=== PATIENT | male | born 1960 | race Caucasian/White ===

== ENCOUNTER 2017-03-14 05:35 | Day surgery (SDC) | payer BC ==
[~2017-03-14] VITALS: Ht 182.9 cm; Wt 86.1 kg
--- NOTE | ~2017-03-14 | OR ---
PATIENT'S NAME: RANI TEE [facility] AGE: 57 Y [address] ROOM: [place] [address] [place] [facility] [place] DATE: 03/14/2017 OR/Procedure Report DISCHARGE DATE: FAMILY PHYSICIAN: Turner De Jesus DO ATTENDING PHYSICIAN: OMERO PETERSEN SURGEON: Omero Petersen MD HEALTHCARE LIAISON: Joe Dahl M.D. DATE OF PROCEDURE: 03/14/2017 PREOPERATIVE DIAGNOSIS: Substernal goiter. POSTOPERATIVE DIAGNOSIS: Substernal goiter. PROCEDURES: 1. Total thyroidectomy. 2. EMG monitoring of the recurrent laryngeal nerves, 2 hours. ANESTHESIA: General endotracheal. COMPLICATIONS: None. ESTIMATED BLOOD LOSS: 75 mL. SPECIMENS: Total thyroid. FINDINGS: 1. Recurrent laryngeal nerve stimulated intact at the conclusion of the case. 2. Parathyroid glands on the right were positively identified and left in situ. 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 The patient was being evaluated for an anterior cervical fusion when the goiter was identified. The patient states that he has noticed enlargement over the years, but has not had any issues. He was found to be euthyroid. We discussed removal of the left side of the thyroid for access with the neurosurgeons and so doing also removal of the right to preclude future monitoring needs of the gland itself. The patient was in agreement and provided informed consent. DESCRIPTION OF PROCEDURE: The patient was brought from the preoperative area to the operative suite, placed on table supine position. All pressure points were padded. Time-out was performed. Correctly identifying the patient procedure. General endotracheal anesthesia was initiated. The anion monitoring system was attached and calibrated. The shoulder roll was placed PATIENT'S NAME: RANI TEE [facility] AGE: 57 Y [address] ROOM: [place] [address] [place]: [facility] [place] DATE: 03/14/2017 OR/Procedure Report DISCHARGE DATE: FAMILY PHYSICIAN: Turner De Jesus DO ATTENDING PHYSICIAN: OMERO PETERSEN and the neck marked and injected with 1% lidocaine with epinephrine. He was then prepped and draped in usual sterile fashion. Incision was made with a 15 blade and cautery was taken down to the level of the strap muscles. Subplatysmal flaps were elevated. Sutures were placed through the platysma for retraction. The straps were divided in the midline and in the left thyroid lobe, first evaluated. A combination of Harmonic Scalpel and blunt dissection was used to completely free the straps and fascia off the left lobes. Superior pole was taken down in a serial fashion with suture ligation and Harmonic Scalpel use. This was also performed of the inferior thyroid vessels. The gland was carefully elevated out of the wound and then dissection was performed in the tracheoesophageal groove until the recurrent laryngeal nerve identified. There was a large portion of the gland that was wrapped behind the trachea near the nerve and this was freed completely and removed. The parathyroids were not identified on this side, however, there also not identified within the subcapsular fascia surrounding the thyroid lobe itself. This was taken off the thyroid gland and then removed. Irrigation was performed and spot hemostasis was achieved with bipolar and the nerve once again stimulated intact. We turned our attention to the right thyroid lobe, which was dissected in the same fashion. This was a much smaller lobe. The recurrent laryngeal nerve was identified as well as the superior and inferior parathyroid glands. These were left in situ. The gland was elevated out of the wound and removed. Hemostasis achieved once again irrigation was performed, recurrent laryngeal nerve once again stimulated intact. The strap muscles were then closed the midline with Vicryl sutures as well as platysma with Vicryl sutures and a running horizontal Prolene suture was placed through the skin followed by ointment and a small dressing. JESSA drain had previously been placed coming up to the right neck and was attached to bulb suction. The patient was returned to the care of anesthesia for extubation and transferred to recovery room in stable condition. MD NORIS FRY/derrick /[id number] d: 03/14/17 1450 t: 03/15/17 1059, OPERATIVE SUMMARY
[~2017-03-14 05:35] MED LIST: ASPIRIN EC81 MG PO; NEURONTIN300 MG PO; PRINIVIL (ZESTR20 MG PO; SIMVASTATIN20 MG PO; TOPROL XL25 MG PO
[2017-03-14] MEDS ORDERED: MOTRIN600 MG PO (06:30)
[2017-03-15] MEDS ORDERED: NORCO 5-325 TA1 EACH PO (11:13)
[2017-03-15] MEDS ORDERED: BACITRACIN OPH3.5 GM TOP (11:18)
[2017-05-10] MEDS ORDERED: LEVOTHROID (S137 MCG PO (13:45)
== END 2017-03-15 13:25 | disposition disaster alternative care site (69) ==
LOC: GMSU 05:35 → GSDC 05:35 → GMSU 05:36 → GSDC 14:00
PROC: 0GTK0ZZ Resection of Thyroid Gland, Open Approach (ICD-10-PCS; principal; 2017-03-14)
DX: E04.9 Nontoxic goiter, unspecified (principal); I25.810 Atherosclerosis of coronary artery bypass graft(s) without angina pectoris; I10 Essential (primary) hypertension; I25.2 Old myocardial infarction; J20.9 Acute bronchitis, unspecified; E78.5 Hyperlipidemia, unspecified; F17.200 Nicotine dependence, unspecified, uncomplicated
CPT/HCPCS: J0131; J0690; J3010; J7030; J7120

== ENCOUNTER 2017-05-15 05:55 | Day surgery (SDC) | payer BC ==
[~2017-05-15] VITALS: Ht 182.9 cm; Wt 87.7 kg
--- NOTE | ~2017-05-15 | OR ---
PATIENT'S [facility] AGE: 57 Y [address] ROOM: [place] [address] LOCATION: [facility] ADMIT DATE: 05/15/2017 OR/Procedure Report DISCHARGE DATE: FAMILY PHYSICIAN: Turner De Jesus DO ATTENDING PHYSICIAN: ISA HERNANDEZ SURGEON: Isa Hernandez MD AGING BOX HAND: DATE OF PROCEDURE: 05/15/2017 ANESTHESIOLOGIST: Isai Lemons MD ANESTHESIA: General. COMPLICATIONS: None. ESTIMATED BLOOD LOSS: Minimal. PREOPERATIVE DIAGNOSES: 1. C4-C5, pczjeczq-ng-ioaryu spinal stenosis with myelopathy. 2. C5-C6, severe spinal stenosis with myelopathy. 3. C6-C7, severe spinal stenosis with myelopathy and radiculopathy. 4. Bilateral C5 foraminal stenosis with radiculopathy. 5. Bilateral C6 foraminal stenosis with radiculopathy. 6. Bilateral C7 foraminal stenosis with radiculopathy. POSTOPERATIVE DIAGNOSES: 1. C4-C5, hbmtzakf-sv-ndeaig spinal stenosis with myelopathy. 2. C5-C6, severe spinal stenosis with myelopathy. 3. C6-C7, severe spinal stenosis with myelopathy and radiculopathy. 4. Bilateral C5 foraminal stenosis with radiculopathy. 5. Bilateral C6 foraminal stenosis with radiculopathy. 6. Bilateral C7 foraminal stenosis with radiculopathy. PROCEDURES PERFORMED: 1. C4-C5 anterior cervical diskectomy and decompression of the spinal cord for stenosis. 2. C5-C6 anterior cervical diskectomy and decompression of the spinal cord for stenosis. 3. C6-C7 anterior cervical diskectomy and decompression of the spinal cord for stenosis. 4. Bilateral C5, bilateral C6, and bilateral C7 foraminotomy and decompression of the neural elements. 5. C4-C5, C5-C6, and C6-C7 anterior instrumented arthrodesis. 6. Insertion of an anterior cervical titanium plate across C4-C5 disk space (plate size was 19 mm, system used was BA Insighttronic [place] Elite system). PATIENT'S [facility]: [facility] AGE: 57 Y [address] ROOM: [place] [address] LOCATION: [facility] ADMIT DATE: 05/15/2017 OR/Procedure Report DISCHARGE DATE: FAMILY PHYSICIAN: Turner De Jesus DO ATTENDING PHYSICIAN: ISA HERNANDEZ 7. Insertion of a second anterior cervical titanium plate spanning from C5 to C7 (plate size was 40 mm, system used was Medtronic [place] Elite system). 8. Intraoperative fluoroscopy and interpretation. 9. Insertion of structural cortical cancellous allograft spacers into C4-C5, C5-C6, and C6-C7 disk spaces (system used was Medtronic Cornerstone system). CLINICAL HISTORY/INDICATIONS FOR PROCEDURE: The patient is a 57-year-old male patient, who was diagnosed with the above-mentioned diagnoses back in January 2017. The patient's imaging also showed evidence of a very large goiter. I sent the patient to ENT for consideration of thyroidectomy prior to the above- mentioned surgery. The patient underwent total thyroidectomy done by Dr. Alas in March 2017. The patient did very well postoperatively. The patient was recently seen in the office and he continued to have symptoms related to multi-level cervical degenerative joint disease, spinal stenosis. He was also found to have weakness in both hands, left worse than the right side. I recommended the above-mentioned surgery to the patient to try to decompress the neural elements to treat his symptoms. The patient was brought in for the elective surgery. DESCRIPTION OF PROCEDURE: The patient was seen in the preoperative care unit and the correct side was marked. Then, he was transferred to the main operating theater, was given general anesthetic, and underwent endotracheal intubation without complications. Preoperative antibiotics and steroids were given. Molina catheter, calf compressors were used throughout the procedure. The patient was positioned supine on the table and all his joints and bony prominences were securely padded. The patient's head was placed on a gel padded beanbag. The neck was held in mild extension/neutral position. The shoulders were taped away to facilitate intraoperative fluoroscopy. Then, I marked an oblique incision just medial to the right sternomastoid muscle on the right side extending from C4-C5 to C6-C7 disk space. The surgical site was then prepped and draped as per usual. The proposed skin incision was infiltrated with 0.25% Marcaine with epinephrine. Skin was sharply opened down to the subplatysmal plane, and as expected, moderate scar tissue was identified. Then, using sharp and blunt dissection, I carefully dissected through the scar tissue from the previous thyroidectomy surgery. That part of the operation was substantially difficult and required more time and caution to prevent nerve and vascular injury. Eventually, I managed to get to the anterior surface of the spine. The correct levels were then confirmed using intraoperative fluoroscopy. I started by elevating the anterior longitudinal ligament as well as the longus colli muscles off the anterior surface of the spine from C4-C5 to C6-C7 PATIENT'S NAME: RANI TEE [facility] AGE: 57 Y [address] ROOM: [address] [address] LOCATION: [facility] ADMIT DATE: 05/15/2017 OR/Procedure Report DISCHARGE DATE: FAMILY PHYSICIAN: Turner De Jesus DO ATTENDING PHYSICIAN: ISA HERNANDEZ levels. As expected, there were moderate anterior projecting osteophytes at all levels and those were removed using Kerrison rongeur. I was satisfied with the exposure. Self-retaining retractor was inserted. I started by performing the diskectomy at C4-C5 level. Distracting pins were inserted into C4, C5 vertebra and gentle distraction was applied. Then, using different sizes curettes, Kerrison rongeur, a formal diskectomy was performed down to the posterior aspect of the disk. The epidural plane was entered then the posterior projecting osteophytes were removed, and the spinal cord was decompressed. Using Kerrison rongeur, I also performed bilateral C5 foraminotomy, and the exiting C5 nerve roots were decompressed. I was satisfied with that. Then, I proceeded to perform the diskectomy at C5-C6 level. As expected, there was wlrqkrpl-bp-vuwrgz degenerative joint disease, and disk space height loss. Distracting pins were inserted and gentle distraction was applied. Then, the diskectomy was performed using different sizes curettes and Kerrison rongeur. There were fairly large posterior projecting osteophyte causing severe central and foraminal stenoses. Those osteophytes were completely removed and thecal sac was decompressed. Bilateral C6 foraminotomy was then completed using Kerrison rongeur. I was satisfied with that. Then, I proceeded to perform the diskectomy at C6-C7 level. I did that in the same fashion as the C4-C5, and C5-C6 levels. Distracting pins were inserted and gentle distraction was applied. The diskectomy was completed using different sizes curettes and Kerrison rongeur. As expected, there was fairly large posterior projecting osteophytes especially on the left side that were causing nvjmbzmx-xe-ooeakx compression on the spinal cord and the exiting left C7 nerve root. Those osteophytes were completely removed and the thecal sac was decompressed. I also did bilateral C7 foraminotomy without any complications. I was satisfied with all those parts. Then, I proceeded to insert allograft spacers into C4-C5, C5-C6, and C6-C7 disk spaces. I used the structural cortical cancellous allograft spacers from the BA Insighttronic [place] Elite system. Those spacers were inserted without any complications. Then, I proceeded to insert anterior cervical titanium plates. In this case, I used two plates. The first plate was 19 mm plate that was inserted at C4-C5 level. The plate was anchored to the C4, C5 vertebra with self-tapping screws. The plate was finally locked. A second plate was inserted across C5- C6, and C6-C7 levels. I used 40 mm plate spanning from C5 to C7. That plate was anchored to the C5, C6, and C7 with self-tapping screws. Final tightening was performed. Then final x-ray was performed and that showed satisfactory decompression and placement of the hardware. I was satisfied with that. PATIENT'S NAME: RANI TEE [facility] AGE: 57 Y [address] ROOM: [place] [address] LOCATION: [facility] ADMIT DATE: 05/15/2017 OR/Procedure Report DISCHARGE DATE: FAMILY PHYSICIAN: Turner De Jesus DO ATTENDING PHYSICIAN: ISA HERNANDEZ Then, I proceeded to irrigation and hemostasis. The wound was copiously irrigated with bacitracin-containing irrigation. Hemostasis was achieved using bipolar cautery. Then, the wound was closed in layers with 2-0 Vicryl to the platysma, and scar tissue, 2-0 Vicryl to the subcutaneous tissue, and cooper for the skin. Sterile dressing was applied. This case was substantially difficult given the previous thyroidectomy surgery that resulted in moderate scar tissue. This case required more time and caution to perform in order to avoid morbidity. At the end of the operation, the instrument and sponge counts were correct. The patient tolerated the operation without any complications. AHMAD MD ARYA HERNANDEZ/derrick /[id number] CC: MD Turner Maki DO d: 05/15/17 1916 t: 05/16/17 1205, OPERATIVE SUMMARY
--- NOTE | ~2017-05-15 | DS ---
PATIENT'S NAME: RANI TEE [facility] AGE: 57 Y [address] ROOM: [address] [place], [place] [address] LOCATION: [id number] ADMIT DATE: 05/15/2017 Discharge Summary DISCHARGE DATE: 05/16/2017 FAMILY PHYSICIAN: Turner De Jesus DO ATTENDING PHYSICIAN: Isa Hernandez ADMISSION MAIN DIAGNOSES: 1. C4-5, C5-6, and C6-7 degenerative joint disease, spinal stenosis with myelopathy. 2. Bilateral C5, C6, and C7 foraminal stenosis with radiculopathy. DISCHARGE MAIN DIAGNOSES: 1. C4-5, C5-6, and C6-7 degenerative joint disease, spinal stenosis with myelopathy. 2. Bilateral C5, C6, and C7 foraminal stenosis with radiculopathy. PROCEDURES DURING ADMISSION: 1. C4-5, C5-6, and C6-7 anterior cervical diskectomy and fusion. 2. Bilateral C5, bilateral C6, and bilateral C7 foraminotomy and decompression. COMPLICATIONS DURING ADMISSION: None. MEDICATIONS ON DISCHARGE: 1. Dexamethasone 2 mg p.o. b.i.d. for 2 days, then 2 mg p.o. once daily for 3 days, then stop. 2. Pepcid 20 mg p.o. b.i.d. while on dexamethasone. 3. Gabapentin 300 mg p.o. t.i.d. for 3 days, then 200 mg p.o. b.i.d. for 3 days, then 200 mg p.o. once daily for 5 days, then stop. 4. Levothyroxine 137 mcg once daily. 5. Lisinopril 20 mg p.o. once daily. 6. Metoprolol ER 25 mg p.o. once daily. 7. Simvastatin 20 mg p.o. once daily. 8. Aspirin 81 mg p.o. once daily (start on May 24, 2017). 9. Flexeril 10 mg p.o. every 8 hours p.r.n. 10. Tramadol 50 to 100 mg p.o. every 6 hours p.r.n. DISCHARGE INSTRUCTIONS AND FOLLOWUP APPOINTMENTS: 1. Myself on May 28, 2017, for staple removal. 2. Isabella collar when mobilizing, soft neck collar when in bed. 3. No heavy lifting (no more than 20 pounds), no neck twisting. 4. Call my office for any concerns regarding the wound healing or for any new neurologic deficits. 5. Keep the dressing on and dry until May 25, 2017, then take off and keep the wound open to air. PATIENT'S NAME: RANI TEE [facility] AGE: 57 Y [address] ROOM: [place] [address] LOCATION: [facility] ADMIT DATE: 05/15/2017 Discharge Summary DISCHARGE DATE: 05/16/2017 FAMILY PHYSICIAN: Turner De Jesus DO ATTENDING PHYSICIAN: Isa Hernandez [facility] COURSE: The above patient was admitted electively to the hospital for the above-mentioned surgery. He underwent an unremarkable operation. Postoperatively, he did very well. His preoperative neck pain, bilateral arm pain and weakness significantly improved after the surgery. He had no new neurologic deficits. He was mobilized by physiotherapy and occupational therapy, and he tolerated that very well. He also tolerated oral intake. His pain was fairly controlled on oral medications. He also had postoperative cervical spine x-ray, and that showed satisfactory decompression and placement of the hardware. On the day of discharge, he was examined. He continued to do well. His wound was healing very well. I reviewed the discharge instructions with the patient. The patient will be discharged home today. MD AYRA STYLES/modl /[id number] CC: DO Frank Linton MD d: 05/16/17 1527 t: 05/20/17 1125, DISCHARGE SUMMARY
[~2017-05-15 05:55] MED LIST changes: +BACITRACIN OPH3.5 GM TOP; +LEVOTHROID (S137 MCG PO; +MOTRIN600 MG PO; +NORCO 5-325 TA1 EACH PO
--- NOTE | 2017-05-15 16:35 | NUR ---
Significant Event: From PACU at 1400. Dressing to R) neck with small marked drainage. Soft collar on at this time, Hangar to bring Pacolet brace. Patient does not follow instruction to not raise head of bed greater than 40 degrees until the Pacolet collar here. Oxycodone 5mg last at 1540. [facility] WNL, orders for neurovascular checks every 1 hour X6 hours. Plans to dismiss home tomorrow afernoon.
--- NOTE | 2017-05-15 18:29 | NUR ---
LATE ENTRY 1224 FENTALOL FOR PAIN. 1250 ORAL PAIN MEDS GIVEN WITHOUT DIFFICULTY. 1315 PATIENT STATING TO C/O OF SEVER NECK AND SHOULDER PAIN IV MEDS GIVEN SEE EMAR. 1345 PATIENT STARTING TO FEEL BETTER AND IS RATING PAIN A 4 AT THIS TIME. HE STATES THAT THIS IS TOLERABLE.
--- NOTE | 2017-05-16 04:26 | NUR ---
Pt prefers vista collar and likes to wear it all the time. Pt up 1 assist, walked 2 laps in the pate. CSM intact. Pt weaned to RA at 2100, but at 0230 he was 84% on room air, pt placed back on 2L. Pt last received oxycodone at 0230. Shadowed drainage remains unchanged.
[2017-05-16] MEDS ORDERED: DECADRON1 MG PO ×2 (10:03→10:04)
[2017-05-16] MEDS ORDERED: PEPCID20 MG PO (10:05)
[2017-05-16] MEDS ORDERED: COLACE100 MG PO (10:05)
[2017-05-16] MEDS ORDERED: FLEXERIL10 MG PO (10:07)
[2017-05-16] MEDS ORDERED: ULTRAM50 MG PO (10:08)
--- NOTE | 2017-05-16 13:03 | NUR ---
PT GIVEN DISCHARGE INSTRUCTIONS AND VOICES UNDERSTANDING. MEDICATIONS AND DRESSING CHANGES REVIEWED WITH PT. SHOWER COVERS AND EXTRA DRESSINGS SENT WITH PT. ESCIRTED TO THE FRONT DOOR BY [employer] [employer]. FAMILY AT PT'S SIDE.
== END 2017-05-16 12:30 | disposition disaster alternative care site (69) ==
LOC: G3N 05:55 → GSDC 05:55 → G3N 14:00 → GPOC 05-16 07:00 → GSDC 05-16 12:30 → GPOC 05-16 14:00
PROC: 0RG20K0 Fusion of 2 or more Cervical Vertebral Joints with Nonautologous Tissue Substitute, Anterior Approach, Anterior Column, Open Approach (ICD-10-PCS; principal; 2017-05-16)
DX: M48.02 Spinal stenosis, cervical region (principal); M54.12 Radiculopathy, cervical region; I10 Essential (primary) hypertension; E07.9 Disorder of thyroid, unspecified; I25.10 Atherosclerotic heart disease of native coronary artery without angina pectoris; I21.3 ST elevation (STEMI) myocardial infarction of unspecified site; E78.5 Hyperlipidemia, unspecified; F17.200 Nicotine dependence, unspecified, uncomplicated; Z98.890 Other specified postprocedural states; Z79.52 Long term (current) use of systemic steroids; Z79.82 Long term (current) use of aspirin; Z79.899 Other long term (current) drug therapy
CPT/HCPCS: C1713; G0009; J0690; J1030; J1100; J1885; J2001; J2250; J2405; J3010; J3360; J7030